=== PATIENT | male | born 1970 | race Caucasian/White ===

== ENCOUNTER 2024-04-24 11:42 | Emergency (ER) | payer BC, SELFPAY ==
[2024-04-24 11:50] VITALS: BP 120/83; PULSE 88; RESP 20; TEMP 36.9; O2SAT 98
--- NOTE | 2024-04-24 11:56 | ED.URI ---
HPI - URI/Sore Throat General Chief Complaint: Upper Respiratory Infection Stated Complaint: Sore Throat/Congestion/Ear Pain Time Seen by Provider: 04/24/24 11:56 Source: patient and RN notes reviewed Mode of arrival: ambulatory Limitations: no limitations History of Present Illness HPI Narrative: 54-year-old male presented for complaint of sore throat, headache, sinus pressure/congestion, cough, fever/chills. Onset 2 days. Denies sick contact. Not taking anything for symptoms. Denies sob, wheezing, n/v/d. MD elicited complaint: cough Related Data Allergies Allergy/AdvReac Type Severity Reaction Status Date / Time tramadol AdvReac Mild Unknown Verified 04/24/24 11:57 CODEINE PHOS Allergy Unknown Unknown Uncoded 04/24/24 11:57 HYDROXYZINE HCL Allergy Unknown Unknown Uncoded 04/24/24 11:57 HYDROXYZINE PAMOATE Allergy Unknown Unknown Uncoded 04/24/24 11:57 KETOROLAC TROMETHAMINE Allergy Unknown Unknown Uncoded 04/24/24 11:57 Review of Systems Review of Systems: CONSTITUTIONAL: Endorses malaise, chills EYES: Denies visual changes, redness, or discharge ENT: Reports rhinorrhea, congestion, otalgia, sore throat CARDIOVASCULAR: Denies chest pain, palpitations, edema RESPIRATORY: Reports cough, post nasal drainage. Denies dyspnea GASTROINTESTINAL: Denies abdominal pain, nausea, vomiting, diarrhea SKIN: Denies rash or itching MUSCULOSKELETAL: Endorses myalgia Exam Narrative: GENERAL: mildly Ill-appearing, nontoxic no acute distress. EYES: PERRLA, conjunctivae clear ENT: Mucous membranes moist. Left TM pearly mcneill with dull light reflex; Right TM erythematous, bulging and intact; canal not erythematous, no drainage no tragal tenderness. Oropharynx not erythematous without lesions or exudate, no drooling, no hoarseness, no trismus, uvula midline. No tripod positioning, muffled voice, soft palate or pharyngeal wall bulging NECK: Supple. No lymphadenopathy CHEST: Clear to auscultation, breath sounds equal. No wheezing, rhonchi, rales, or stridor. No respiratory distress, speaks in full sentences. HEART: Regular rate and rhythm. No murmur heard. SKIN: Warm, dry, no rash. NEURO: Alert and oriented x3. PSYCH: Normal mood and affect Course Course Emergency Course: Patient is aware of diagnosis, understands and agrees to treatment plan. Anticipatory guidance given. Patient agrees to follow-up as directed and is aware of reasons to seek care at the emergency department. Portions of this record may have been created with voice recognition software Level of Care: Express Care Visit Vital Signs Vital signs: Vital Signs Temperature 98.4 F 04/24/24 11:50 Pulse Rate 88 04/24/24 11:50 Respiratory Rate 20 04/24/24 11:50 Blood Pressure 120/83 04/24/24 11:50 Pulse Oximetry 98 04/24/24 11:50 Oxygen Delivery Room Air 04/24/24 11:50 Temperature 98.4 F 04/24/24 11:50 Pulse Rate 88 04/24/24 11:50 Respiratory Rate 04/24/24 11:50 Blood Pressure 120/83 04/24/24 11:50 Pulse Oximetry 98 04/24/24 11:50 Oxygen Delivery Room Air 04/24/24 11:50 reviewed MDM - URI/Sore Throat MDM Narrative Medical decision making narrative: Discussed physical exam findings cw right AOM, pt declined covid/flu testing. Advised supportive measures and signs/symptoms to go to the ER. Pt is appropriate for outpt treatment and f/u. Differential Diagnosis Differential diagnosis: Likely upper respiratory infection, sinusitis and viral infection Discharge Plan Discharge Clinical Impression: Otitis media Patient Disposition: Home, Self-Care Condition: Stable Instructions: Antibiotic Form, Ear Infection (ED) Additional Instructions: Take antibiotics as directed. Recommend antihistamine such as Benadryl, Zyrtec or Jennifer for sinus congestion Flonase nasal spray, 1 spray in each nostril once daily until symptoms improve Symptomatic treatment includes: rest, fluids, and increase humidity of the air at
[2024-04-24 11:57] VITALS: BP 120/83; PULSE 88; RESP 20; TEMP 36.9; O2SAT 98
== END 2024-04-24 12:08 | disposition home or self-care (01) ==
PROVIDERS: Emergency Provider Nurse Practitioner Family
DX: H66.91 Otitis media, unspecified, right ear (principal)
CPT/HCPCS: 99203; G0463